=== PATIENT | female | born 2000 | race Caucasian/White ===

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

== ENCOUNTER → 2022-07-18 | Outpatient (CLI) | payer MEDICAID | LOC: GIR 16:55 | PROVIDERS: ATTEND Registered Nurse Emergency | DX: N89.8 Other specified noninflammatory disorders of vagina (principal) | CPT/HCPCS: 87210 ==

== ENCOUNTER 2023-03-28 16:09 | Emergency (ER) | payer MEDICAID ==
[~2023-03-28] VITALS: Ht 147.3 cm; Wt 47.5 kg
--- NOTE | 2023-03-28 16:25 | ED GU-Female ---
General Chief Complaint: OB < 20 WEEKS Stated Complaint: VOMITING | 6 WEEKS History of Present Illness Date Seen by Provider: Mar 28, 2023 Time Seen by Provider: 16:25 Initial Comments 51-year-old female with PMH of developmental delay/speech disorder/ADHD, who is a primigravida and 6 weeks , is here with complaints of nausea and lethargy for the past few days. Patient has not been eating or drinking much in the past 1 to 2 days. Patient states that she tries to drink water most days, approximately 4 water bottles a day. Denies fever and chills, cough, URI symptoms, shortness of breath, chest pain, abdominal pain, diarrhea, vaginal discharge, vaginal bleeding. Patient is being treated for a UTI with nitrofurantoin and she has completed 1 or 2 days of antibiotics so far. No known sick contacts. Patient has been taking her prenatals regularly at night. Allergies and Home Medications Allergies Coded Allergies: No Known Drug Allergies (Unverified , 02/23/19) Patient Home Medication List Home Medication List Reviewed: Yes Citalopram Hydrobromide (Celexa) 20 Mg Tablet, 20 MG PO HS, (Reported) Entered as Reported by: SHANAE FORD on 02/23/19 1023 Dexmethylphenidate HCl (Focalin Xr) 25 Mg Cpbp.50.50, 25 MG PO DAILY, (Reported) Entered as Reported by: SHANAE FORD on 02/23/19 1023 Ofloxacin (Floxin (Non-Formulary)) 5 Ml Drops, 3 DROPS EACH EAR BID Prescribed by: DAVE RUIZ on 02/24/19 0930 Risperidone (Risperdal) 0.5 Mg Tablet, 0.5 MG PO HS, (Reported) Entered as Reported by: SHANAE FORD on 02/23/19 1023 Review of Systems Review of Systems Constitutional: see HPI, malaise EENTM: no symptoms reported Respiratory: no symptoms reported Cardiovascular: no symptoms reported Gastrointestinal: no symptoms reported Genitourinary: no symptoms reported Musculoskeletal: no symptoms reported Skin: no symptoms reported Psychiatric/Neurological: No Symptoms Reported Endocrine: No Symptoms Reported Past Vcnppst-Gwdljt-Onwbds Hx Seasonal Allergies Seasonal Allergies: No Past Medical History Surgeries: Yes (BMT X2) Respiratory: No Cardiac: No Neurological: Yes Headaches /Migraines Female Reproductive Disorders: Denies Sexually Transmitted Disease: No HIV/AIDS: No Genitourinary: No Gastrointestinal: No Musculoskeletal: No Endocrine: No HEENT: Yes Chronic Ear Infection Loss of Vision: Denies Hearing Impairment: Denies Cancer: No Psychosocial: Yes (Anger disorder, 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 0.0oz. 40.905660sb; 18.6 BMI Method:Stated General Appearance: WD/WN, no apparent distress HEENT: PERRL/EOMI, normal ENT inspection Neck: non-tender, full range of motion Cardiovascular: regular rate, rhythm, no edema Respiratory: lungs clear Gastrointestinal: normal bowel sounds, non tender, soft Back: normal inspection, no CVA tenderness Neurologic/Psychiatric: no motor/sensory deficits, alert, normal mood/affect, oriented x 3 Progress/Results/Core Measures Suspected Sepsis SIRS Temperature: Pulse: Respiratory Rate: Laboratory Tests 03/28/23 16:55: White Blood Count 8.1 Blood Pressure / Mean: Laboratory Tests 03/28/23 16:55: Creatinine 0.54L, Platelet Count 219, Total Bilirubin 0.2 Results/Orders Lab Results Laboratory Tests Test 03/28/23 16:55 03/28/23 17:00 03/28/23 17:05 Range/Units White Blood Count 8.1 4.3-11.0 10^3/uL Red Blood Count 4.85 3.80-5.11 10^6/uL Hemoglobin 13.5 11.5-16.0 g/dL Hematocrit 40 35-52 % Mean Corpuscular Volume 83 80-99 fL Mean Corpuscular Hemoglobin 28 25-34 pg Mean Corpuscular Hemoglobin Concent 34 32-36 g/dL Red Cell Distribution Width 14.0 10.0-14.5 % Platelet Count 219 130-400 10^3/uL Mean Platelet Volume 10.1 9.0-12.2 fL Immature Granulocyte % (Auto) 0 % Neutrophils (%) (Auto) 59 42-75 % Lymphocytes (%) (Auto) 35 12-44 % Monocytes (%) (Auto) 6 0-12 % Eosinophils (%) (Auto) 0 0-10 % Basophils (%) (Auto) 0 0-10 % Neutrophils # (Auto) 4.8 1.8-7.8 10^3/uL Lymphocytes # (Auto) 2.8 1.0-4.0 10^3/uL Monocytes # (Auto) 0.5 0.0-1.0 10^3/uL Eosinophils # (Auto) 0.0 0.0-0.3 10^3/uL Basophils # (Auto) 0.0 0.0-0.1 10^3/uL Immature Granulocyte # (Auto) 0.0 0.0-0.1 10^3/uL Sodium Level 135 135-145 MMOL/L Potassium Level 3.3 L 3.6-5.0 MMOL/L Chloride Level 103 98-107 MMOL/L Carbon Dioxide Level 21 21-32 MMOL/L Anion Gap 11 5-14 MMOL/L Blood Urea Nitrogen 4 L 7-18 MG/DL Creatinine 0.54 L 0.60-1.30 MG/DL Estimat Glomerular Filtration Rate 134 BUN/Creatinine Ratio 7 Glucose Level 87 70-105 MG/DL Calcium Level 9.0 8.5-10.1 MG/DL Corrected Calcium 8.9 8.5-10.1 MG/DL Magnesium Level 2.1 1.6-2.4 MG/DL Total Bilirubin 0.2 0.1-1.0 MG/DL Aspartate Amino Transf (AST/SGOT) 22 5-34 U/L Alanine Aminotransferase (ALT/SGPT) 14 0-55 U/L Alkaline Phosphatase 73 40-136 U/L Total Protein 6.2 L 6.4-8.2 GM/DL Albumin 4.1 3.2-4.5 GM/DL Human Chorionic Gonadotropin, Quant [id number] H <5 MIU/ML Urine Color YELLOW Urine Clarity TURBID Urine pH 6.0 5-9 Urine Specific [place] 1.025 H 1.016-1.022 Urine Protein NEGATIVE NEGATIVE Urine Glucose (UA) NEGATIVE NEGATIVE Urine Ketones 3+ H NEGATIVE Urine Nitrite NEGATIVE NEGATIVE Urine Bilirubin NEGATIVE NEGATIVE Urine Urobilinogen 0.2 < = 1.0 MG/DL Urine Leukocyte Esterase TRACE H NEGATIVE Urine RBC (Auto) NEGATIVE NEGATIVE Urine RBC NONE /HPF Urine WBC 5-10 H /HPF Urine Squamous Epithelial Cells TNTC H /HPF Urine Crystals NONE /LPF Urine Bacteria LARGE H /HPF Urine Casts NONE /LPF Urine Mucus NEGATIVE /LPF Urine Culture Indicated NO Influenza Type A (RT-PCR) Not Detected Not Detecte Influenza Type B (RT-PCR) Not Detected Not Detecte SARS-CoV-2 RNA (RT-PCR) Not Detected Not Detecte My Orders Orders - MAXIMO ARANGO MD Cbc With Automated Diff (03/28/23 16:38) Comprehensive Metabolic Panel (03/28/23 16:38) Hcg,Quantitative (03/28/23 16:38) Magnesium (03/28/23 16:38) Ua Culture If Indicated (03/28/23 16:38) Influenza A And B By Pcr (03/28/23 16:38) Covid 19 Inhouse Test (03/28/23 16:38) Ed Iv/Invasive Line Start (03/28/23 16:39) Ns Iv 1000 Ml (Sodium Chloride 0.9%) (03/28/23 16:45) Ondansetron Injection (Zofran Injectio (03/28/23 16:45) Potassium Chloride (Tablet) (Potassium C (03/28/23 17:45) Medications Given in ED Current Medications Medications Dose Ordered Sig/Eva Route Start Time Stop Time Status Last Admin Dose Admin Ondansetron HCl 4 mg ONCE ONCE IVP 03/28/23 16:45 03/28/23 16:46 DC 03/28/23 16:56 4 MG Vital Signs/I&O 03/28/23 16:25 Temp 37.2 Pulse 76 Resp 18 B/P (MAP) 119/80 (93) Pulse Ox 98 O2 Delivery Room Air Capillary Refill : Progress Note : Progress Note 1. NAUSEA AND FATIGUE IN , 1st TRIMESTER/ MILD HYPOKALEMIA - CBC: normal WBC, and Hb - CMP: s.K is 3.3 - Oral potassium 40mEq given in ER - NS IVF bolus STAT - Zofran 4mg iv STAT -Advised adequate nutrition and hydration -Follow-up with [facility] as soon as possible. Patient has an appointment with first week of April. -Patient feels better after receiving fluids and Zofran. Patient has Zofran at home to take for nausea or vomiting. -The patient was seen in the ED, and treated appropriately to presentation at a specific point in time. Patient is informed that there is a possibility that disease and illness can evolve and change in acuity rapidly or slowly after patient is discharged from the ER. Precautionary advice given to the patient for immediate return to ER if symptoms worsen or do not resolve, and to seek emergency care sooner rather than later. Pt also advised on the importance of PCP follow up and compliance with management and follow up plan with PCP and/or specialist, as this is part of the management plan. Pt verbally expressed understanding. Departure Impression Primary Impression: Nausea/vomiting in Additional Impressions: Fatigue during in first trimester Hypokalemia due to excessive gastrointestinal loss of potassium Disposition: HOME, SELF-CARE Condition: Improved Departure-Patient Inst. Referrals: KIMBERLY WASHINGTON APRN (PCP) Primary Care Physician TALON CHRISTY MD (Family) Primary Care Physician Patient Instructions: Morning Sickness ED, Nausea and Vomiting of , High Potassium Diet Add. Discharge Instructions: -Advised adequate nutrition and hydration - Take Zofran as needed for nausea and vomiting -Follow-up with [facility] as soon as possible. Patient has an appointment with first week of April. All discharge instructions reviewed with patient and/or family. Voiced understanding. MAXIMO ARANGO MD Mar 28, 2023 16:25
[2023-03-28] MEDS ORDERED: ONDANSETRON 4 MG/2 ML (SDV) Z0FRAN IVP ONE (16:45)
[2023-03-28] MEDS ORDERED: NS IV 1000 ML 1,000 ML IV SCH (16:45)
[2023-03-28 17:02] LABS: BASOPHILS % (AUTO) 0 % (0-10); EOSINOPHILS % (AUTO) 0 % (0-10); HEMATOCRIT 40 % (35-52); HEMOGLOBIN 13.5 g/dL (11.5-16.0); LYMPHOCYTES # (AUTO) 2.8 10^3/uL (1.0-4.0); LYMPHOCYTES % (AUTO) 35 % (12-44); MEAN CORPUSCULAR HEMOGLOBIN 28 pg (25-34); MEAN CORPUSCULAR HGB CONC 34 g/dL (32-36); MEAN CORPUSCULAR VOLUME 83 fL (80-99); MEAN PLATELET VOLUME 10.1 fL (9.0-12.2); MONOCYTES # (AUTO) 0.5 10^3/uL (0.0-1.0); MONOCYTES % (AUTO) 6 % (0-12); NEUTROPHILS # (AUTO) 4.8 10^3/uL (1.8-7.8); NEUTROPHILS % (AUTO) 59 % (42-75); PLATELET COUNT 219 10^3/uL (130-400); WHITE BLOOD COUNT 8.1 10^3/uL (4.3-11.0)
[2023-03-28 17:13] LABS: BILIRUBIN,URINE NEGATIVE (NEGATIVE); COLOR,URINE YELLOW; GLUCOSE, URINE (UA) NEGATIVE (NEGATIVE); KETONES,URINE 3+ (NEGATIVE); LEUKOCYTE ESTERASE ,URINE TRACE (NEGATIVE); NITRITE,URINE NEGATIVE (NEGATIVE); PROTEIN,URINE NEGATIVE (NEGATIVE)
[2023-03-28 17:19] LABS: BACTERIA,URINE LARGE /HPF; CLARITY,URINE TURBID; SQUAMOUS EPITHELIAL CELL,UR TNTC /HPF
[2023-03-28 17:32] LABS: BILIRUBIN,TOTAL 0.2 MG/DL (0.1-1.0); CREATININE SERUM 0.54 MG/DL (0.60-1.30); MAGNESIUM 2.1 MG/DL (1.6-2.4); POTASSIUM 3.3 MMOL/L (3.6-5.0)
[2023-03-28 17:33] LABS: ALBUMIN 4.1 GM/DL (3.2-4.5); TOTAL PROTEIN 6.2 GM/DL (6.4-8.2)
[2023-03-28] MEDS ORDERED: POTASSIUM CHLORIDE 20 MEQ TABLET PO ONE ×2 (17:45→17:48)
[2023-03-28 17:55] VITALS: BP 103/56
== END 2023-03-28 17:55 | disposition home or self-care (01) ==
LOC: EDUNIT# 16:09 → ER FS 16:11
DX: O21.9 Vomiting of pregnancy, unspecified (principal); O26.811 Pregnancy related exhaustion and fatigue, first trimester; O99.281 Endocrine, nutritional and metabolic diseases complicating pregnancy, first trimester; E87.6 Hypokalemia; Z20.822 Contact with and (suspected) exposure to COVID-19; Z3A.01 Less than 8 weeks gestation of pregnancy
CPT/HCPCS: 36415; 80053; 81000; 83735; 84702; 85025; 87636